=== PATIENT | male | born 1985 | race Caucasian/White ===

== ENCOUNTER 2019-11-08 12:08 | Inpatient (IN) | payer OTHER ==
[~2019-11-08] VITALS: Ht 172.7 cm; Wt 104.3 kg
--- NOTE | 2019-11-08 12:20 | NUR ---
PACIENTE ALERTA Y ORIENTADO EN LAS URVASHI ESFERAS, EL MISMO INDICA ABSESO EN PECHO DERECHO. SE OBSERVA AREA ENROJECIDA, SUPURANDO, CALIENTE AL TACTO. SE ORIENTA PACIENTE A ESPERAR EN AREA DE PASILLO PARA EVALUACION MEDICA
--- NOTE | 2019-11-08 13:01 | NUR ---
MS WADE ORIENTA A PACIENTE SOBRE ORDENES MEDICAS, COLECTA MUESTRAS DE LABORATORIO, CANALIZA VENA Y ADMINISTRA VANCOMYCIN 1GM IV. PENDIENTE QUE PACIENTE ENTREGUE MUESTRA DE ORINA. PENDIENTE PLACA DE PECHO Y SONOGRAMA DE PECHO.
--- NOTE | 2019-11-08 15:22 | NUR ---
SE RECIBE DE TURNO ANTERIOR MASCULINO DE 34 ANOS,ALERTA,ORIENTADO EN BUTCH URVASHI ESFERAS,DESCANSANDO EN CAMA,BARANDAS ELEVADAS,FRENOC COLOCADOS POR SEGURIDAD. SE OBSERVA CON BUEN PATRON RESPIRATORIO.AREA DE VENOPUNCION PATENTE RECIBIENDO 0.45%NSS 1,000 ML @75ML/HR. PENDIENTE ESTUDIO DE CT ABD/PELV W CONTRAST PO.
--- NOTE | 2019-11-08 15:52 | NUR ---
SE RECIBE D ETURNO ANTERIOR MASCULINO DE 34 ANOS,ALERTA,ORIENTADO EN BUTCH URVASHI ESFERAS. SE OBSERVA CON BUEN PATRON RESPIRATORIO. PENDIENTE RE EVALUACION MEDICA.
== END 2019-11-15 10:12 | disposition home or self-care (01) | DRG 601 ==
LOC: ER 12:08 → SEC-K 17:55 → SURH 17:55
PROVIDERS: ADMIT Specialist
PROC: BH40ZZZ Ultrasonography of Right Breast (ICD-10-PCS; 2019-11-08)
PROC: 8E0ZXY6 Isolation (ICD-10-PCS; 2019-11-08)
PROC: 0H9 Skin and Breast, Drainage (ICD-10-PCS; principal; 2019-11-09 13:30)
DX: N61.1 Abscess of the breast and nipple (principal)